=== PATIENT | female | born 1940 | race Caucasian/White ===

== ENCOUNTER 2016-09-30 13:45 | Outpatient (CLI) | payer MEDICARE, OTHER | END 2016-09-30 13:46 | disposition home or self-care (01) | DX: Z12.31 Encounter for screening mammogram for malignant neoplasm of breast (principal); Z80.3 Family history of malignant neoplasm of breast ==

== ENCOUNTER 2017-10-02 13:30 | Outpatient (CLI) | payer MEDICARE, OTHER ==
--- NOTE | 2017-10-07 17:56 | Mammography Report ---
DIGITAL SCREENING MAMMOGRAM: 10/02/2017 CLINICAL INDICATION: A 77-year-old with family history of breast cancer for screening, history of benign right breast biopsy. COMPARISON: 09/2016, 08/2015, 08/2014, 07/2013, 06/2012, 05/2011, 04/2010. TECHNIQUE: Routine CC and MLO projections were obtained of the breasts. FINDINGS: The breasts again demonstrate heterogeneously dense fibroglandular parenchyma bilaterally. Coarse and punctate, typically benign calcifications are present. No suspicious masses, clustered microcalcifications, or regions of architectural distortion are identified. IMPRESSION: BENIGN FINDINGS. RECOMMENDATION: Routine annual screening unless otherwise clinically indicated. BI-RADS category 2 benign findings. STANDARD QUALIFYING STATEMENTS 1. This examination was reviewed with the aid of Computed-Aided Detection (CAD). 2. A negative or benign imaging report should not delay biopsy if clinically suspicious findings are present. Consider surgical consultation if warranted. More than 5% of cancers are not identified by imaging. 3. Dense breasts may obscure an underlying neoplasm. TD: 10/07/2017 15:46
== END 2017-10-02 13:31 | disposition home or self-care (01) ==
LOC: DI.N 13:30
PROVIDERS: ATTEND Family Medicine
DX: Z12.31 Encounter for screening mammogram for malignant neoplasm of breast (principal); Z80.3 Family history of malignant neoplasm of breast
CPT/HCPCS: 77067

== ENCOUNTER 2020-10-17 14:11 | Outpatient (CLI) | payer MEDICARE, OTHER ==
--- NOTE | 2020-10-18 14:08 | Mammography Report ---
BILATERAL DIGITAL SCREENING MAMMOGRAM 3D/2D: 10/17/2020 CLINICAL: Routine screening. Comparison is made to exams dated: 10/02/2017 mammogram, 09/30/2016 mammogram, 09/13/2015 mammogram, 08/24/2014 mammogram, 09/09/2013 mammogram, and 07/14/2012 mammogram - [facility]. The t issue of both breasts is heterogeneously dense. This may lower the sensitivity of mammography. There are grouped fine calcifications in the left breast at 1 o'clock middle depth. No other significant masses, calcifications, or other findings are seen in either breast. IMPRESSION: INCOMPLETE: NEEDS ADDITIONAL IMAGING EVALUATION The grouped fine calcifications in the left breast are indeterminate. Mediolateral, spot magnificati on, and additional views are recommended. This exam was interpreted at Station ID: [id number]. NOTE: For mammograms, a report in lay terms will be sent to the patient. Approximately 15% of breast malignancies will not be visualized mammographically. In the management of a palpable breast mass, a negative mammogram must not discourage biopsy of a clinically suspicious lesion. Electronically Signed By: Micheal Dejesus M.D. ddp/:10/17/2020 15:14:38 ACR BI-RADS Category 0: Incomplete 3340F PARENCHYMAL PATTERN: (D) - The breast(s) demonstrate(s) heterogeneously dense fibroglandular parenchy ma. BI-RADS CATEGORY: (0) - 0 RECOMMENDATION: (ADDMAM) - Recommend additional mammographic views. [id number] Immediate follow-up LATERALITY: (B)
== END 2020-10-17 14:12 | disposition home or self-care (01) ==
LOC: DI 14:11
DX: Z12.31 Encounter for screening mammogram for malignant neoplasm of breast (principal); R92.8 Other abnormal and inconclusive findings on diagnostic imaging of breast

== ENCOUNTER 2020-11-09 11:23 | Outpatient (CLI) | payer MEDICARE, OTHER ==
--- NOTE | 2020-11-10 11:14 | Mammography Report ---
UNILATERAL LEFT DIGITAL DIAGNOSTIC MAMMOGRAM 3D/2D: 11/09/2020 CLINICAL: Patient returns today to evaluate a focal asymmetry in the left breast. Comparison is made to exams dated: 10/17/2020 mammogram, 10/02/2017 mammogram, 09/30/2016 mammogram, and 09/13/2015 mammogram - [facility]. The tissue of left breast is heterogeneously de nse. This may lower the sensitivity of mammography. There are benign diffuse calcifications in the left breast. The calcifications described in the previ ous report most likely appeared more prominent due to relatively decreased superimposed breast tissue at that location. No significant masses, calcifications, or other findings are seen in the breast. IMPRESSION: BENIGN The diffuse calcifications in the left breast are benign. There is no mammographic evidence of malignancy. A 1 year screening mammogram is recommended. This exam was interpreted at Station ID: [id number]. NOTE: For mammograms, a report in lay terms will be sent to the patient. Approximately 15% of breast malignancies will not be visualized mammographically. In the management of a palpable breast mass, a negative mammogram must not discourage biopsy of a clinically suspicious lesion. Electronically Signed By: Vicente hernandez/alan:11/09/2020 13:38:23 ACR BI-RADS Category 2: Benign Finding(s) 3342F PARENCHYMAL PATTERN: (D) - The breast(s) demonstrate(s) heterogeneously dense fibroglandular erin gar. BI-RADS CATEGORY: (2) - 2 RECOMMENDATION: (ANNUAL) - Recommend routine annual screening mammography. [id number] 1 year screening LATERALITY: (B)
== END 2020-11-09 11:24 | disposition home or self-care (01) ==
LOC: DI 11:23
PROVIDERS: ATTEND Family Medicine
DX: R92.8 Other abnormal and inconclusive findings on diagnostic imaging of breast (principal)

== ENCOUNTER 2023-10-09 08:00 | Outpatient (CLI) | payer MEDICARE, OTHER | END 2023-10-09 08:01 | disposition home or self-care (01) | LOC: LAB.N 08:00 | PROVIDERS: ATTEND Family Medicine | DX: U07.1 COVID-19 (principal) ==